=== PATIENT | female | born 1955 | race Two or more races ===

== ENCOUNTER 2016-10-17 21:56 | Emergency (ER) | payer OTHER, SELFPAY ==
[~2016-10-17 21:56] MED LIST: CADUET; CADUET 10 MG/201 TAB PO; CHOLESTEROL MED; CILOXAN3.5 GM OP; EQL FISH OIL 1,1 CAP PO; LORTAB 5/500 TA1 TAB PO; MULTI VITAMIN1 EAC1 PO; NEXIUM20 MG; NEXIUM40 MG PO; PRINIVIL5 MG PO; [UNRECOGNIZED DRUG - REMARK]
[2016-10-17] MEDS ORDERED: MAGNESIUM OXID400 M1 PO (22:12)
[2016-10-17] MEDS ORDERED: NAPROSYN500 M1 PO (22:12)
[2016-10-17] MEDS ORDERED: VITAMIN D31000 UNI3 PO (22:12)
[2016-10-17 23:48] LABS: BASO % 0.7 % (0-2); BASO ABSOLUTE COUNT 0.1 tho/cmm (0.0-0.2); EOS % 2.8 % (0-7); EOSINOPHIL ABSOLUTE COUNT 0.2 tho/cmm (0.0-0.7); HCT-HEMATOCRIT 38.3 % (34.0-49.0); HGB-HEMOGLOBIN 13.2 gm/dl (12.0-15.5); LYMPH % 42.4 % (20-45); LYMPH ABSOLUTE COUNT 3.1 tho/cmm (0.8-4.5); MCH (MEAN CORPUSCULAR HGB) 30.1 pg (28.0-32.0); MCHC MEAN CORPUSCULAR HGB CONC 34.5 % (32.0-36.0); MCV (MEAN CELL VOLUME) 87.4 fl (82.0-96.0); MEAN PLATELET VOLUME 10.2 cmc (9.4-12.4); MONO % 9.3 % (0-12); MONOCYTE ABSOLUTE COUNT 0.7 tho/cmm (0.0-1.2); NEUTROPHIL ABSOLUTE COUNT 3.2 tho/cmm (1.6-8.0); NEUTROPHIL-AUTOMATED 3.2 tho/cmm (1.6-8.0); NEUTROPHILS % 44.8 % (40-80); PLATELET COUNT 235 tho/cmm (150-450); RED BLOOD COUNT 4.38 mil/cmm (4.00-5.20); RED CELL DISTRIBUTION WIDTH 12.7 % (12.4-16.4); WHITE BLOOD COUNT 7.2 tho/cmm (4.0-10.0)
[2016-10-18 00:01] LABS: ANION GAP 9 mmol/L (0-20); BLOOD UREA NITROGEN 13 mg/dl (6-24); CARBON DIOXIDE-VENOUS 31 mmol/L (22-32); CHLORIDE 107 mmol/l (96-110); CREATININE 0.83 mg/dl (0.50-1.10); GLUCOSE 120 mg/dL (70-110); MAGNESIUM 2.3 mg/dl (1.3-2.6); POTASSIUM 4.1 mmol/L (3.7-5.1); SODIUM 143 mmol/L (135-145); eGFR VALUE FOR BLACK 89 mL/Min
== END 2016-10-18 00:26 ==
LOC: EDMED 21:56
PROVIDERS: Emergency Medicine
DX: M62.831 Muscle spasm of calf (principal); G47.30 Sleep apnea, unspecified